=== PATIENT | female | born 1955 | race Caucasian/White ===

== ENCOUNTER 2016-08-07 10:28 | Outpatient (CLI) | payer BC | END 2016-08-07 10:29 | disposition home or self-care (01) | DX: Z71.3 Dietary counseling and surveillance (principal); N18.4 Chronic kidney disease, stage 4 (severe); Z68.1 Body mass index [BMI] 19.9 or less, adult ==

== ENCOUNTER 2016-08-28 10:40 | Outpatient (CLI) | payer BC, OTHER | END 2016-08-28 10:41 | disposition home or self-care (01) | DX: R05 Cough (principal); Z87.01 Personal history of pneumonia (recurrent) ==

== ENCOUNTER 2016-11-15 16:00 | Outpatient (CLI) | payer OTHER ==
[2016-11-15 18:40] LABS: CALCIUM 10.1 mg/dL (8.5-10.3); CREATININE 3.2 mg/dL (0.4-1.0); PHOSPHORUS 3.7 mg/dL (2.5-4.6); POTASSIUM 3.8 mmol/L (3.5-5.0); URIC ACID 8.2 mg/dL (2.6-7.2)
== END 2016-11-15 16:01 | disposition home or self-care (01) ==
LOC: LAB.F 16:00
PROVIDERS: ATTEND Internal Medicine Nephrology
DX: I12.9 Hypertensive chronic kidney disease with stage 1 through stage 4 chronic kidney disease, or unspecified chronic kidney disease (principal); N18.4 Chronic kidney disease, stage 4 (severe)
CPT/HCPCS: 36415; 80069; 84156; 84550

== ENCOUNTER 2017-02-05 10:31 | Outpatient (CLI) | payer BC ==
[2017-02-05 18:42] LABS: HCT - HEMATOCRIT 36.4 % (37.0-47.0); HGB - HEMOGLOBIN 12.2 g/dL (12.0-16.0); MEAN CORPUSCULAR HEMOGLOBIN 33.4 pg (27.0-31.0); MEAN CORPUSCULAR HGB CONC 33.4 g/dL (32.0-36.0); MEAN CORPUSCULAR VOLUME 99.8 fL (81.0-99.0); RED BLOOD COUNT 3.65 10^6/uL (4.20-5.40); RED CELL DISTRIBUTION WIDTH 13.5 % (12.0-15.0); WHITE BLOOD COUNT 7.5 x10^3/uL (4.8-10.8)
[2017-02-05 19:12] LABS: CALCIUM 9.7 mg/dL (8.5-10.3); CREATININE 2.8 mg/dL (0.4-1.0); PHOSPHORUS 3.7 mg/dL (2.5-4.6)
== END 2017-02-05 10:32 | disposition home or self-care (01) ==
LOC: LAB.F 10:31
PROVIDERS: ATTEND Internal Medicine Nephrology
DX: I13.0 Hypertensive heart and chronic kidney disease with heart failure and stage 1 through stage 4 chronic kidney disease, or unspecified chronic kidney disease (principal); I50.20 Unspecified systolic (congestive) heart failure; N18.4 Chronic kidney disease, stage 4 (severe)
CPT/HCPCS: 36415; 80069; 84156

== ENCOUNTER 2017-02-15 12:08 | Outpatient (CLI) | payer BC ==
--- NOTE | 2017-02-16 13:16 | Mammography Report ---
DIGITAL SCREENING MAMMOGRAM: 02/15/2017 CLINICAL INDICATION: A 62-year-old nulliparous patient with family history of breast cancer for scre ening. COMPARISON: 07/2015, 09/2012, 08/2009, 06/2007 TECHNIQUE: Routine CC and MLO projections were obtained of the breasts. FINDINGS: The breasts again demonstrate heterogeneously dense fibroglandular parenchyma bilaterally. Coarse and punctate, typically benign calcifications are present. No suspicious masses, clustered microcalcifications, or regions of architectural distortion are identified. IMPRESSION: BENIGN FINDINGS. RECOMMENDATION: Routine annual screening unless otherwise clinically indicated. BIRADS CATEGORY 2 - BENIGN FINDINGS. STANDARD QUALIFYING STATEMENTS 1. This examination was reviewed with the aid of Computer-Aided Detection (CAD). 2. A negative or benign imaging report should not delay biopsy if clinically suspicious findings are present. Consider surgical consultation if warranted. More than 5% of cancers are not identified by i maging. 3. Dense breasts may obscure an underlying neoplasm. JOB #: [id number] EXT JOB #:[id number]
== END 2017-02-15 12:09 | disposition home or self-care (01) ==
LOC: DI.S 12:08
PROVIDERS: ATTEND Internal Medicine
DX: Z12.31 Encounter for screening mammogram for malignant neoplasm of breast (principal); Z80.3 Family history of malignant neoplasm of breast
CPT/HCPCS: 77067

== ENCOUNTER → 2017-03-26 | Outpatient (CLI) | payer BC, OTHER | LOC: LAB.F 08:00 | PROVIDERS: ATTEND Internal Medicine | DX: I12.9 Hypertensive chronic kidney disease with stage 1 through stage 4 chronic kidney disease, or unspecified chronic kidney disease (principal); N18.4 Chronic kidney disease, stage 4 (severe) ==

== ENCOUNTER → 2017-03-27 | Outpatient (CLI) | payer BC, OTHER | LOC: LAB.R 08:00 | PROVIDERS: ATTEND Internal Medicine | DX: I12.9 Hypertensive chronic kidney disease with stage 1 through stage 4 chronic kidney disease, or unspecified chronic kidney disease (principal); N18.4 Chronic kidney disease, stage 4 (severe) | CPT/HCPCS: 82270 ==

== ENCOUNTER 2017-04-06 08:52 | Outpatient (CLI) | payer BC ==
[2017-04-06 18:38] LABS: BUN - BLOOD UREA NITROGEN 19 mg/dL (6-20); CALCIUM 9.5 mg/dL (8.5-10.3); CARBON DIOXIDE - CO2 25 mmol/L (21-32); CHLORIDE 105 mmol/L (101-111); CHOL/HDL RATIO 3.3 (<4.4); CHOLESTEROL 182 mg/dL; CREATININE 2.5 mg/dL (0.4-1.0); GFR - MDRD 20 (>89); GLUCOSE 93 mg/dL (70-100); HDL CHOLESTEROL 56 mg/dL; LDL/HDL RATIO 1.8 (<4.4); POTASSIUM 4.3 mmol/L (3.5-5.0); SODIUM 138 mmol/L (135-145); TRIGLYCERIDES 115 mg/dL; VLDL CHOLESTEROL 23 mg/dL
[2017-04-06 18:49] LABS: HCT - HEMATOCRIT 36.2 % (37.0-47.0); HGB - HEMOGLOBIN 12.2 g/dL (12.0-16.0); MEAN CORPUSCULAR HEMOGLOBIN 33.1 pg (27.0-31.0); MEAN CORPUSCULAR HGB CONC 33.6 g/dL (32.0-36.0); MEAN CORPUSCULAR VOLUME 98.4 fL (81.0-99.0); RED BLOOD COUNT 3.68 10^6/uL (4.20-5.40); RED CELL DISTRIBUTION WIDTH 13.8 % (12.0-15.0); WHITE BLOOD COUNT 6.8 x10^3/uL (4.8-10.8)
== END 2017-04-06 08:53 | disposition home or self-care (01) ==
LOC: LAB.F 08:52
PROVIDERS: ATTEND Internal Medicine Nephrology
DX: I13.0 Hypertensive heart and chronic kidney disease with heart failure and stage 1 through stage 4 chronic kidney disease, or unspecified chronic kidney disease (principal); I50.20 Unspecified systolic (congestive) heart failure; N18.4 Chronic kidney disease, stage 4 (severe)
CPT/HCPCS: 36415; 80061; 80069; 86803

== ENCOUNTER 2017-04-13 09:52 | Outpatient (CLI) | payer BC, OTHER | END 2017-04-13 09:53 | disposition home or self-care (01) | LOC: NS 09:52 | PROVIDERS: ATTEND Internal Medicine | DX: Z71.3 Dietary counseling and surveillance (principal); N18.5 Chronic kidney disease, stage 5; Z68.1 Body mass index [BMI] 19.9 or less, adult | CPT/HCPCS: 97802 ==

== ENCOUNTER 2017-07-27 10:51 | Outpatient (CLI) | payer OTHER ==
[2017-07-27 18:18] LABS: ALBUMIN 4.2 g/dL (3.2-5.5); CALCIUM 9.3 mg/dL (8.5-10.3); CREATININE 3.2 mg/dL (0.4-1.0); PHOSPHORUS 4.6 mg/dL (2.5-4.6)
== END 2017-07-27 10:52 | disposition home or self-care (01) ==
LOC: LAB.F 10:51
PROVIDERS: ATTEND Internal Medicine Nephrology
DX: I13.0 Hypertensive heart and chronic kidney disease with heart failure and stage 1 through stage 4 chronic kidney disease, or unspecified chronic kidney disease (principal); E79.0 Hyperuricemia without signs of inflammatory arthritis and tophaceous disease; I50.20 Unspecified systolic (congestive) heart failure; N18.4 Chronic kidney disease, stage 4 (severe); F17.200 Nicotine dependence, unspecified, uncomplicated; E61.1 Iron deficiency
CPT/HCPCS: 36415; 80069; 83970; 84156

== ENCOUNTER 2017-08-22 08:24 | Outpatient (CLI) | payer OTHER ==
[2017-08-22 10:45] LABS: ALBUMIN 3.9 g/dL (3.2-5.5); CALCIUM 9.9 mg/dL (8.5-10.3); PHOSPHORUS 3.8 mg/dL (2.5-4.6)
[2017-08-22 10:53] LABS: HGB - HEMOGLOBIN 11.7 g/dL (12.0-16.0); MEAN CORPUSCULAR HEMOGLOBIN 32.4 pg (27.0-31.0); MEAN CORPUSCULAR HGB CONC 33.7 g/dL (32.0-36.0); MEAN CORPUSCULAR VOLUME 96.3 fL (81.0-99.0); MEAN PLATELET VOLUME 9.5 fL (7.9-10.8); RED BLOOD COUNT 3.6 10^6/uL (4.20-5.40); RED CELL DISTRIBUTION WIDTH 12.8 % (12.0-15.0); WHITE BLOOD COUNT 10.3 x10^3/uL (4.8-10.8)
== END 2017-08-22 08:25 | disposition home or self-care (01) ==
LOC: LAB.F 08:24
PROVIDERS: ATTEND Internal Medicine Nephrology
DX: I12.9 Hypertensive chronic kidney disease with stage 1 through stage 4 chronic kidney disease, or unspecified chronic kidney disease (principal); N18.4 Chronic kidney disease, stage 4 (severe)
CPT/HCPCS: 36415; 80069; 83970; 84156

== ENCOUNTER 2017-12-06 08:53 | Outpatient (CLI) | payer OTHER ==
[2017-12-06 10:50] LABS: HGB - HEMOGLOBIN 11.7 g/dL (12.0-16.0); MEAN CORPUSCULAR HEMOGLOBIN 32.6 pg (27.0-31.0); MEAN CORPUSCULAR HGB CONC 33.1 g/dL (32.0-36.0); MEAN CORPUSCULAR VOLUME 98.6 fL (81.0-99.0); MEAN PLATELET VOLUME 9.4 fL (7.9-10.8); RED BLOOD COUNT 3.59 10^6/uL (4.20-5.40); RED CELL DISTRIBUTION WIDTH 14.6 % (12.0-15.0); WHITE BLOOD COUNT 10.6 x10^3/uL (4.8-10.8)
[2017-12-06 11:18] LABS: ALBUMIN 3.9 g/dL (3.2-5.5); CALCIUM 9.5 mg/dL (8.5-10.3); CREATININE 2.3 mg/dL (0.4-1.0); PHOSPHORUS 3.6 mg/dL (2.5-4.6)
== END 2017-12-06 08:54 | disposition home or self-care (01) ==
LOC: LAB.F 08:53
PROVIDERS: ATTEND Internal Medicine
DX: N18.4 Chronic kidney disease, stage 4 (severe) (principal); I12.9 Hypertensive chronic kidney disease with stage 1 through stage 4 chronic kidney disease, or unspecified chronic kidney disease; F17.200 Nicotine dependence, unspecified, uncomplicated
CPT/HCPCS: 36415; 80069; 83970; 84156; 85027

== ENCOUNTER 2018-04-05 09:21 | Outpatient (CLI) | payer OTHER ==
[2018-04-05 09:29] LABS: MUDS CUTOFF CONCENTRATIONS CUTOFF CONC BELOW:
[2018-04-05 18:18] LABS: AMPHETAMINE SCREEN,URINE NEGATIVE (NEGATIVE); BENZODIAZEPINES SCREEN, URINE POSITIVE (NEGATIVE); COCAINE SCREEN URINE NEGATIVE (NEGATIVE); METHADONE SCREEN, URINE NEGATIVE (NEGATIVE); METHAMPHETAMINES SCREEN, URINE NEGATIVE (NEGATIVE); OPIATE SCREEN, URINE NEGATIVE (NEGATIVE); TRICYCLIC ANTIDEPRESSANT,URINE NEGATIVE (NEGATIVE)
[2018-04-05 18:19] LABS: OXYCODONE SCREEN, URINE POSITIVE (NEGATIVE); PROPOXYPHENE SCREEN, URINE NEGATIVE (NEGATIVE)
[2018-04-05 18:21] LABS: CALCIUM 9.6 mg/dL (8.5-10.3); CREATININE 2.7 mg/dL (0.4-1.0); PHOSPHORUS 3.8 mg/dL (2.5-4.6)
[2018-04-05 18:25] LABS: HGB - HEMOGLOBIN 11.5 g/dL (12.0-16.0); MEAN CORPUSCULAR HEMOGLOBIN 32.8 pg (27.0-31.0); MEAN CORPUSCULAR HGB CONC 33.2 g/dL (32.0-36.0); MEAN CORPUSCULAR VOLUME 98.6 fL (81.0-99.0); MEAN PLATELET VOLUME 9.3 fL (7.9-10.8); RED BLOOD COUNT 3.51 10^6/uL (4.20-5.40); RED CELL DISTRIBUTION WIDTH 13.4 % (12.0-15.0); WHITE BLOOD COUNT 7.3 x10^3/uL (4.8-10.8)
== END 2018-04-05 09:22 | disposition home or self-care (01) ==
LOC: LAB.F 09:21
PROVIDERS: ATTEND Internal Medicine
DX: Z79.891 Long term (current) use of opiate analgesic (principal)
CPT/HCPCS: 36415; 80069; 80306; 83970; 85027

== ENCOUNTER 2018-07-24 11:50 | Outpatient (CLI) | payer OTHER ==
[2018-07-24 17:42] LABS: HGB - HEMOGLOBIN 10.7 g/dL (12.0-16.0); MEAN CORPUSCULAR HEMOGLOBIN 32.6 pg (27.0-31.0); MEAN CORPUSCULAR HGB CONC 33.2 g/dL (32.0-36.0); RED BLOOD COUNT 3.28 10^6/uL (4.20-5.40); RED CELL DISTRIBUTION WIDTH 13.8 % (12.0-15.0); WHITE BLOOD COUNT 9.4 x10^3/uL (4.8-10.8)
[2018-07-24 18:23] LABS: CALCIUM 9.4 mg/dL (8.5-10.3); CREATININE 2.9 mg/dL (0.4-1.0); PHOSPHORUS 4.2 mg/dL (2.5-4.6)
[2018-07-24 19:20] LABS: CREATININE,URINE 54.1 mg/dL; PROTEIN/CREATININE RATIO,URINE 4.4 (<=0.2)
== END 2018-07-24 23:59 | disposition home or self-care (01) ==
LOC: LAB.F 11:50
PROVIDERS: ATTEND Internal Medicine Nephrology
DX: N18.4 Chronic kidney disease, stage 4 (severe) (principal)
CPT/HCPCS: 36415; 80069; 82570; 83970; 84156; 85027

== ENCOUNTER 2018-09-06 07:58 | Outpatient (CLI) | payer OTHER ==
[2018-09-06 11:10] LABS: HGB - HEMOGLOBIN 10.4 g/dL (12.0-16.0); MEAN CORPUSCULAR HEMOGLOBIN 32.4 pg (27.0-31.0); MEAN CORPUSCULAR HGB CONC 33.5 g/dL (32.0-36.0); MEAN CORPUSCULAR VOLUME 96.7 fL (81.0-99.0); MEAN PLATELET VOLUME 9.1 fL (7.9-10.8); RED BLOOD COUNT 3.21 10^6/uL (4.20-5.40); RED CELL DISTRIBUTION WIDTH 13.3 % (12.0-15.0); WHITE BLOOD COUNT 7.8 x10^3/uL (4.8-10.8)
[2018-09-06 11:24] LABS: ALBUMIN 3.7 g/dL (3.2-5.5); CREATININE 3.3 mg/dL (0.4-1.0); PHOSPHORUS 4.5 mg/dL (2.5-4.6)
[2018-09-06 11:37] LABS: FERRITIN 326.7 ng/mL (11.0-306.8)
[2018-09-06 13:23] LABS: CREATININE,URINE 55.8 mg/dL; PROTEIN/CREATININE RATIO,URINE 2.4 (<=0.2)
[2018-09-06 14:19] LABS: CALCIUM 9.4 mg/dL (8.5-10.3)
== END 2018-09-06 07:59 | disposition home or self-care (01) ==
LOC: LAB.F 07:58
PROVIDERS: ATTEND Internal Medicine Nephrology
DX: N18.4 Chronic kidney disease, stage 4 (severe) (principal)
CPT/HCPCS: 36415; 80069; 82570; 82728; 83540; 83970; 84156; 84466; 85027

== ENCOUNTER 2018-12-06 09:12 | Outpatient (CLI) | payer OTHER ==
[2018-12-06 17:40] LABS: HGB - HEMOGLOBIN 10.5 g/dL (12.0-16.0); MEAN PLATELET VOLUME 9.1 fL (7.9-10.8); RED BLOOD COUNT 3.28 10^6/uL (4.20-5.40); RED CELL DISTRIBUTION WIDTH 13.3 % (12.0-15.0); WHITE BLOOD COUNT 8.9 x10^3/uL (4.8-10.8)
[2018-12-06 18:14] LABS: ALBUMIN 4.3 g/dL (3.2-5.5); CALCIUM 9.6 mg/dL (8.5-10.3); CREATININE 4.2 mg/dL (0.4-1.0); PHOSPHORUS 4.4 mg/dL (2.5-4.6)
[2018-12-06 18:15] LABS: FERRITIN 302.8 ng/mL (11.0-306.8)
[2018-12-06 19:19] LABS: CREATININE,URINE 68.3 mg/dL; PROTEIN/CREATININE RATIO,URINE 2.4 (<=0.2)
== END 2018-12-06 09:13 | disposition home or self-care (01) ==
LOC: LAB.F 09:12
PROVIDERS: ATTEND Internal Medicine Nephrology
DX: N18.4 Chronic kidney disease, stage 4 (severe) (principal)
CPT/HCPCS: 36415; 80069; 82570; 82728; 83540; 83970; 84156; 84466; 85027

== ENCOUNTER 2019-02-10 10:56 | Outpatient (CLI) | payer OTHER ==
[2019-02-10 17:23] LABS: MEAN CORPUSCULAR HGB CONC 30.7 g/dL (32.0-36.0); MEAN PLATELET VOLUME 11.3 fL (7.9-10.8); RED BLOOD COUNT 2.9 10^6/uL (4.20-5.40); WHITE BLOOD COUNT 8.3 x10^3/uL (4.8-10.8)
[2019-02-10 17:46] LABS: ALBUMIN 4.1 g/dL (3.2-5.5); CALCIUM 9.5 mg/dL (8.5-10.3); PHOSPHORUS 4.1 mg/dL (2.5-4.6)
== END 2019-02-10 10:57 | disposition home or self-care (01) ==
LOC: LAB.S 10:56
PROVIDERS: ATTEND Internal Medicine Nephrology
DX: N18.5 Chronic kidney disease, stage 5 (principal)
CPT/HCPCS: 36415; 80069; 85027

== ENCOUNTER 2019-04-28 09:21 | Outpatient (CLI) | payer OTHER ==
[2019-04-28 18:09] LABS: HGB - HEMOGLOBIN 9.5 g/dL (12.0-16.0); MEAN CORPUSCULAR HEMOGLOBIN 30.4 pg (27.0-31.0); MEAN CORPUSCULAR VOLUME 101.3 fL (81.0-99.0); MEAN PLATELET VOLUME 10.8 fL (7.9-10.8); RED BLOOD COUNT 3.13 10^6/uL (4.20-5.40); RED CELL DISTRIBUTION WIDTH 13.2 % (12.0-15.0); WHITE BLOOD COUNT 9.6 x10^3/uL (4.8-10.8)
[2019-04-28 18:25] LABS: ALBUMIN 4.1 g/dL (3.2-5.5); CALCIUM 9.3 mg/dL (8.5-10.3); CREATININE 4.2 mg/dL (0.4-1.0); PHOSPHORUS 4.6 mg/dL (2.5-4.6)
[2019-04-28 19:19] LABS: CREATININE,URINE 68.8 mg/dL; PROTEIN/CREATININE RATIO,URINE 2.6 (<=0.2)
== END 2019-04-28 09:22 | disposition home or self-care (01) ==
LOC: LAB.S 09:21
PROVIDERS: ATTEND Internal Medicine Nephrology
DX: N18.5 Chronic kidney disease, stage 5 (principal)
CPT/HCPCS: 36415; 80069; 82570; 83970; 84156; 85027

== ENCOUNTER 2019-06-23 13:07 | Outpatient (CLI) | payer OTHER ==
[2019-06-23 18:08] LABS: HGB - HEMOGLOBIN 9.9 g/dL (12.0-16.0); MEAN CORPUSCULAR HEMOGLOBIN 31.1 pg (27.0-31.0); MEAN CORPUSCULAR HGB CONC 31.2 g/dL (32.0-36.0); MEAN CORPUSCULAR VOLUME 99.7 fL (81.0-99.0); MEAN PLATELET VOLUME 10.9 fL (7.9-10.8); RED BLOOD COUNT 3.18 10^6/uL (4.20-5.40); RED CELL DISTRIBUTION WIDTH 13.2 % (12.0-15.0); WHITE BLOOD COUNT 8.7 x10^3/uL (4.8-10.8)
[2019-06-23 18:10] LABS: CALCIUM 9.7 mg/dL (8.5-10.3); CREATININE 4.3 mg/dL (0.4-1.0); PHOSPHORUS 4.2 mg/dL (2.5-4.6)
== END 2019-06-23 13:08 | disposition home or self-care (01) ==
LOC: LAB.S 13:07
PROVIDERS: ATTEND Internal Medicine Nephrology
DX: N18.5 Chronic kidney disease, stage 5 (principal)
CPT/HCPCS: 36415; 80069; 83970; 84156; 85027

== ENCOUNTER 2019-08-18 10:31 | Outpatient (CLI) | payer OTHER ==
[2019-08-18 17:56] LABS: HGB - HEMOGLOBIN 9.5 g/dL (12.0-16.0); MEAN CORPUSCULAR HEMOGLOBIN 30.2 pg (27.0-31.0); MEAN CORPUSCULAR HGB CONC 30.1 g/dL (32.0-36.0); MEAN CORPUSCULAR VOLUME 100.3 fL (81.0-99.0); RED BLOOD COUNT 3.15 10^6/uL (4.20-5.40); RED CELL DISTRIBUTION WIDTH 12.6 % (12.0-15.0); WHITE BLOOD COUNT 10.6 x10^3/uL (4.8-10.8)
[2019-08-18 18:19] LABS: ALBUMIN 3.9 g/dL (3.2-5.5); CALCIUM 9.4 mg/dL (8.5-10.3); CREATININE 5.9 mg/dL (0.4-1.0); PHOSPHORUS 5.6 mg/dL (2.5-4.6)
[2019-08-18 18:59] LABS: PROTEIN/CREATININE RATIO,URINE 2.2 (<=0.2)
== END 2019-08-18 10:32 | disposition home or self-care (01) ==
LOC: LAB.S 10:31
PROVIDERS: ATTEND Internal Medicine Nephrology
DX: N18.5 Chronic kidney disease, stage 5 (principal)
CPT/HCPCS: 36415; 80069; 82570; 83970; 84156; 85027

== ENCOUNTER 2019-09-01 09:29 | Outpatient (CLI) | payer OTHER ==
[2019-09-01 10:08] LABS: HGB - HEMOGLOBIN 9.1 g/dL (12.0-16.0); MEAN CORPUSCULAR HEMOGLOBIN 32.7 pg (27.0-31.0); MEAN CORPUSCULAR HGB CONC 32.9 g/dL (32.0-36.0); MEAN CORPUSCULAR VOLUME 99.6 fL (81.0-99.0); MEAN PLATELET VOLUME 9.9 fL (7.9-10.8); RED BLOOD COUNT 2.78 10^6/uL (4.20-5.40); RED CELL DISTRIBUTION WIDTH 12.5 % (12.0-15.0); WHITE BLOOD COUNT 9.3 x10^3/uL (4.8-10.8)
[2019-09-01 10:28] LABS: ALBUMIN 4.1 g/dL (3.2-5.5); CREATININE 5.8 mg/dL (0.4-1.0); PHOSPHORUS 4.6 mg/dL (2.5-4.6)
[2019-09-01 11:27] LABS: FOLATE > 49.60 ng/mL (5.90 - >24.8)
--- NOTE | 2019-09-01 15:21 | XRAY Report ---
Reason: STAGE 5 CHRONIC KIDNEY DISEASE Procedure Date: 09/01/2019 Accession Number: [id number] / [id number] Procedure: XR - Chest 2 View X-Ray CPT Code: 20423 Final Report FULL RESULT: EXAM: CHEST RADIOGRAPHY EXAM DATE: 09/01/2019 10:16 AM. CLINICAL HISTORY: STAGE 5 CHRONIC KIDNEY DISEASE. COMPARISON: CHEST 2 VIEW PA/LAT 08/28/2016 10:49 AM. TECHNIQUE: 2 views. FINDINGS: Lungs/Pleura: No consolidation, airspace disease, pleural effusion or pneumothorax. Hyperinflated lungs with flattened diaphragm. Mediastinum: Heart and mediastinal contours are unremarkable. Other: Mild to moderate levoscoliosis at the thoracolumbar spine. IMPRESSION: No acute cardiopulmonary disease. COPD could be present. See above. RADIA
[2019-09-02 12:45] LABS: HEPATITIS B SURFACE ANTIGEN NON-REACTIVE (NON-REACTIVE)
== END 2019-09-01 09:30 | disposition home or self-care (01) ==
LOC: LAB 09:29
PROVIDERS: ATTEND Internal Medicine Nephrology
DX: N18.6 End stage renal disease (principal); D63.1 Anemia in chronic kidney disease
CPT/HCPCS: 36415; 71046; 80069; 82607; 82728; 82746; 83540; 83970; 84466; 85027; 86317; 86704; 87340

== ENCOUNTER 2019-12-18 08:58 | Outpatient (CLI) | payer OTHER ==
[2019-12-18 16:02] LABS: HGB - HEMOGLOBIN 8.2 g/dL (12.0-16.0); MEAN CORPUSCULAR HEMOGLOBIN 30.5 pg (27.0-31.0); MEAN CORPUSCULAR VOLUME 101.5 fL (81.0-99.0); MEAN PLATELET VOLUME 11.3 fL (7.9-10.8); RED BLOOD COUNT 2.69 10^6/uL (4.20-5.40); RED CELL DISTRIBUTION WIDTH 12.7 % (12.0-15.0); WHITE BLOOD COUNT 6.6 x10^3/uL (4.8-10.8)
[2019-12-18 16:29] LABS: ALBUMIN 4.1 g/dL (3.2-5.5); CALCIUM 9.3 mg/dL (8.5-10.3); CREATININE 6.3 mg/dL (0.4-1.0); PHOSPHORUS 5.4 mg/dL (2.5-4.6)
== END 2019-12-18 08:59 | disposition home or self-care (01) ==
LOC: LAB.S 08:58
PROVIDERS: ATTEND Internal Medicine Nephrology
DX: N18.5 Chronic kidney disease, stage 5 (principal)
CPT/HCPCS: 36415; 80069; 85025; 85027

== ENCOUNTER 2020-01-16 12:28 | Outpatient (CLI) | payer OTHER ==
[2020-01-16 15:30] LABS: HGB - HEMOGLOBIN 8.2 g/dL (12.0-16.0); MEAN CORPUSCULAR HEMOGLOBIN 31.3 pg (27.0-31.0); MEAN CORPUSCULAR HGB CONC 31.1 g/dL (32.0-36.0); MEAN CORPUSCULAR VOLUME 100.8 fL (81.0-99.0); MEAN PLATELET VOLUME 11.1 fL (7.9-10.8); RED BLOOD COUNT 2.62 10^6/uL (4.20-5.40); RED CELL DISTRIBUTION WIDTH 12.8 % (12.0-15.0); WHITE BLOOD COUNT 8.8 x10^3/uL (4.8-10.8)
[2020-01-16 15:46] LABS: ALBUMIN 4.2 g/dL (3.2-5.5); CALCIUM 9.1 mg/dL (8.5-10.3); CREATININE 6.4 mg/dL (0.4-1.0); PHOSPHORUS 6.4 mg/dL (2.5-4.6)
[2020-01-17 14:10] LABS: HEPATITIS B SURFACE ANTIGEN NON-REACTIVE (NON-REACTIVE)
== END 2020-01-16 12:29 | disposition home or self-care (01) ==
LOC: LAB.S 12:28
PROVIDERS: ATTEND Internal Medicine Nephrology
DX: N18.5 Chronic kidney disease, stage 5 (principal); D63.1 Anemia in chronic kidney disease
CPT/HCPCS: 36415; 80069; 83970; 85027; 87340

== ENCOUNTER 2021-06-28 11:16 | Outpatient (CLI) | payer MEDICARE ==
--- NOTE | 2021-06-29 13:56 | Mammography Report ---
BILATERAL DIGITAL SCREENING MAMMOGRAM 3D/2D WITH EXAGGERATED CC: 06/28/2021 Comparison is made to exams dated: 02/15/2017 mammogram, 08/10/2015 mammogram, and 10/02/2012 mammogram - [facility]. The tissue of both breasts is predominantly fatty. There are stable benign diffuse calcifications in both breasts. No significant masses, calcifications, or other findings are seen in either breast. There has been no significant interval change. IMPRESSION: BENIGN There is no mammographic evidence of malignancy. A 1 year screening mammogram is recommended. This exam was interpreted at Station ID: [id number]. NOTE: For mammograms, a report in lay terms will be sent to the patient. Approximately 15% of breast malignancies will not be visualized mammographically. In the management of a palpable breast mass, a negative mammogram must not discourage biopsy of a clinically suspicious lesion. Electronically Signed By: Norm Turner acr/penrad:06/28/2021 15:19:40 ACR BI-RADS Category 2: Benign Finding(s) 3342F PARENCHYMAL PATTERN: (F) - The breast(s) demonstrate(s) diffuse fatty replacement. BI-RADS CATEGORY: (2) - 2 RECOMMENDATION: (ANNUAL) - Recommend routine annual screening mammography. [id number] 1 year screening LATERALITY: (B)
== END 2021-06-28 11:17 | disposition home or self-care (01) ==
LOC: DI.S 11:16
PROVIDERS: ATTEND Internal Medicine
DX: Z12.31 Encounter for screening mammogram for malignant neoplasm of breast (principal)

== ENCOUNTER 2021-06-29 12:42 | Outpatient (CLI) | payer MEDICARE ==
--- NOTE | 2021-06-29 14:18 | DEXA Report ---
PROCEDURE: Dexa Spine and/or Hip INDICATIONS: OSTEOPOROSIS TECHNIQUE: Dual energy x-ray absorptiometry (DXA) was performed on a [employer] System. Regions measur ed are the AP Spine, femoral neck, and if needed forearm. COMPARISON: None. FINDINGS: Lumbar Spine: Bone Mineral Density 1.319 g/cm/cm,T score 1.2, normal bone density Right Hip: Bone Mineral Density 0.602 g/cm/cm,T score -3.2, osteoporosis Right Femoral Neck: Bone Mineral Density 0.660 g/cm/cm, T score -2.7, osteoporosis (T score greater or equal to -1.0: NORMAL) (T score from -1.1 to -2.4: OSTEOPENIA) (T score less than or equal to -2.5 to: OSTEOPOROSIS) Impression: OSTEOPOROSIS. Patient is at high risk for fracture. Patients with diagnosis of osteoporosis or osteopenia should have regular bone mineral density assess ment. For those eligible for Medicare, routine testing is allowed once every 2 years. Testing frequ ency can be increased for patients who have rapidly progressing disease or for those who are receivin g medical therapy to restore bone mass. Reviewed by: Chalo Perez MD on 06/29/2021 2:17 PM PST Approved by: Chalo Perez MD on 06/29/2021 2:17 PM PST Station ID: [id number]
== END 2021-06-29 12:43 | disposition home or self-care (01) ==
LOC: DI 12:42
PROVIDERS: ATTEND Internal Medicine
DX: N95.8 Other specified menopausal and perimenopausal disorders (principal); M81.0 Age-related osteoporosis without current pathological fracture

== ENCOUNTER 2021-08-04 10:12 | Outpatient (CLI) | payer MEDICARE | END 2021-08-04 10:13 | disposition home or self-care (01) | LOC: LAB.S 10:12 | PROVIDERS: ATTEND Internal Medicine Nephrology | DX: N18.6 End stage renal disease (principal); Z99.2 Dependence on renal dialysis | CPT/HCPCS: 80323; 81599 ==

== ENCOUNTER 2021-09-20 13:58 | Outpatient (CLI) | payer MEDICARE | END 2021-09-20 13:59 | disposition short-term general hospital (02) | LOC: EMS 13:58 | DX: R41.0 Disorientation, unspecified (principal); R25.3 Fasciculation; R42 Dizziness and giddiness; R53.1 Weakness; R29.6 Repeated falls | CPT/HCPCS: A0425; A0429 ==

== ENCOUNTER 2021-11-15 08:51 | Outpatient (CLI) | payer MEDICARE, OTHER ==
--- NOTE | 2021-11-15 11:48 | CT Report ---
PROCEDURE: Abdomen/Pelvis WO INDICATIONS: END STAGE RENAL FAILURE TECHNIQUE: Noncontrast 5 mm thick sections acquired from the diaphragms to the symphysis. 5 mm coronal and sagi ttal reformats were then performed. For radiation dose reduction, the following was used: automated exposure control, adjustment of mA and/or kV according to patient size. COMPARISON: None. FINDINGS: Image quality: Diagnostic. Study slightly degraded by motion artifact. ABDOMEN: Lung bases: Trace bilateral pleural effusions with associated compressive atelectasis. Heart size is normal. Solid organs: Liver and spleen are normal in size. Gallbladder is partially decompressed with mild circumferential wall thickening which likely represents incomplete distention with small amount of flores rrounding ascites. Pancreas is normal in contours. No peripancreatic inflammation. No adrenal nodul es. Both kidneys are slightly atrophic. The left kidney is smaller than the right. Numerous bilateral renal hypodensities are noted measuring up to 3.2 cm on the right and 2.5 cm the left. Many of these measure near fluid attenuation. These are incompletely evaluated secondary to lack of intravenous co ntrast. However, these are likely renal cysts with some representing hyperdense cysts. Peritoneum and bowel: Unenhanced bowel loops demonstrate normal wall thickness and caliber. No free air. Small mary unt of free fluid in the abdomen and pelvis. Nodes and vessels: No retroperitoneal or mesenteric adenopathy by size criteria. Aorta and inferior vena cava are normal in caliber. Scattered atherosclerotic calcifications of the abdominal aorta. Miscellaneous: No ventral hernias. Peritoneal dialysis catheter is visualized entering the abdomen in the right midabdomen with distal tip coiled within the right lower pelvis. Small amount of fluid s urrounds the distal segments. No evidence to suggest loculation or organized fluid collection. PELVIS: Genitourinary: Bladder wall thickness is normal for degree of distention. Miscellaneous: No inguinal hernias or adenopathy. Bones: No suspicious bony lesions. No acute vertebral body compression fractures. Multilevel spondy losis of the imaged spine. Moderate degenerative changes noted in the right hip. Status post left tot al hip arthroplasty. Beam hardening artifact limits evaluation of the lower pelvic structures. Healed fracture deformities of the right inferior pubic ramus. Diffuse osteopenia. IMPRESSION: 1. CT abdomen and pelvis without acute abnormalities. Study is limited due to lack of intravenous con trast as well as mild image degradation secondary to patient motion artifact. 2. Multiple bilateral renal hypodensities which are incompletely characterized. These are favored to represent bilateral renal cysts. 3. Atherosclerotic vascular disease. No evidence for aneurysmal dilatation of the abdominal aorta. 4. Trace bilateral pleural effusions with bibasilar atelectasis. 5. Diffuse osteopenia. 6. Multilevel spondylosis. No acute compression fractures visualized. 7. Healed right inferior pubic ramus fracture deformity. 8. Peritoneal dialysis catheter in place with the distal tip coiled in the lower right pelvis. Reviewed by: Chalo Perez MD on 11/15/2021 11:46 AM PDT Approved by: Chalo Perez MD on 11/15/2021 11:46 AM PDT Station ID: [id number]
== END 2021-11-15 08:52 | disposition home or self-care (01) ==
LOC: DI 08:51
PROVIDERS: ATTEND Internal Medicine Nephrology
DX: N18.6 End stage renal disease (principal); Z99.2 Dependence on renal dialysis; I70.0 Atherosclerosis of aorta; M85.80 Other specified disorders of bone density and structure, unspecified site; M95.5 Acquired deformity of pelvis

== ENCOUNTER 2021-11-18 14:21 | Outpatient (CLI) | payer MEDICARE ==
--- NOTE | 2021-11-18 18:38 | Ultrasound Report ---
PROCEDURE: Abdomen Complete INDICATIONS: END STAGE RENAL FAILURE ON DIALYSIS TECHNIQUE: Real-time scanning was performed of the abdominal and retroperitoneal organs, with image documentatio n. COMPARISON: None. FINDINGS: Examination is limited. Liver: Liver is normal in size and demonstrates a coarsened echotexture. Gallbladder: Wall is mildly thickened at 3 mm. No calculi nor sludge. Biliary ducts: Intrahepatic bile ducts are non-dilated. Extrahepatic bile duct caliber measures 14 mm. Normal is 6-7 mm or less in diameter, or 10 mm or less post-cholecystectomy. Pancreas: Pancreatic duct is prominent. Pancreatic recommend not well seen. Spleen: Spleen is normal in size and homogeneous in echotexture. Kidneys: Multiple bilateral renal cysts. Right kidney measures 11 cm, left kidney measures 9 cm. Righ t renal cortical thickness is 16 mm. Left renal cortical thickness is 10 mm. No nephrolithiasis nor d efinite hydronephrosis. Aorta: Visualized aorta is normal in caliber at less than 3 cm. Iliacs: Proximal common iliac arteries are normal in caliber at less than 2.5 cm. IVC: Intrahepatic inferior vena cava is patent. Miscellaneous: Possible trace amount of perihepatic ascites. IMPRESSION: 1. Dilated common bile duct. This could represent a distal common bile duct calculus or obstructing m ass. This could be further assessed with MRCP, if clinically indicated. 2. Bilateral renal cysts. No hydronephrosis. 3. Coarsened hepatic echotexture, possibly indicating cirrhosis. 4. Possible small amount of ascites. Reviewed by: Pedro Pablo Valdovinos MD on 11/18/2021 6:36 PM PDT Approved by: Pedro Pablo Valdovinos MD on 11/18/2021 6:36 PM PDT Station ID: [id number]
--- NOTE | 2021-11-18 18:40 | Ultrasound Report ---
PROCEDURE: Duplex Lwr Ext Arterial Bilat INDICATIONS: END STAGE RENAL FAILURE TECHNIQUE: Color and pulse Doppler interrogation was performed of both lower extremity arterial systems, with im age documentation. COMPARISON: None FINDINGS: Right lower extremity: Common femoral artery: 103 cm/sec, with triphasic flow. Deep femoral artery: 105 cm/sec, with triphasic flow. Proximal superficial femoral artery: 149 cm/sec, with triphasic flow. Mid superficial femoral artery: 133 cm/sec, with triphasic flow. Distal superficial femoral artery: 120 cm/sec, with triphasic flow. Popliteal artery: 113 cm/sec, with triphasic flow. Posterior tibial artery: 112 cm/sec, with triphasic flow. Anterior tibial artery/dorsalis pedis: 137 cm/sec, with triphasic flow. Olivas-scale imaging description: Mild plaque Left lower extremity: Common femoral artery: 150 cm/sec, with triphasic flow. Deep femoral artery: 63 cm/sec, with triphasic flow. Proximal superficial femoral artery: 112 cm/sec, with triphasic flow. Mid superficial femoral artery: 102 cm/sec, with triphasic flow. Distal superficial femoral artery: 93 cm/sec, with triphasic flow. Popliteal artery: 94 cm/sec, with triphasic flow. Posterior tibial artery: 91 cm/sec, with triphasic flow. Anterior tibial artery/dorsalis pedis: 99 cm/sec, with triphasic flow. Olivas-scale imaging description: Mild plaque. IMPRESSION: No evidence of arterial insufficiency to the bilateral lower extremities. Reviewed by: Pedro Pablo Valdovinos MD on 11/18/2021 6:39 PM PDT Approved by: Pedro Pablo Valdovinos MD on 11/18/2021 6:39 PM PDT Station ID: [id number]
--- NOTE | 2021-11-18 18:41 | Ultrasound Report ---
PROCEDURE: Carotid Doppler Complete INDICATIONS: END STAGE RENAL FAILURE TECHNIQUE: Color and pulse Doppler interrogation was performed of both carotid systems, with image documentation and velocity measurements. COMPARISON: None. FINDINGS: Right side: Brachial blood pressure: 161/63 mm Hg. Common carotid artery peak systolic velocity: 47 cm/sec. Internal carotid artery peak systolic velocity: 77 cm/sec. Internal carotid artery end diastolic velocity: 25 cm/sec. External carotid artery peak systolic velocity: 95 cm/sec. ICA/CCA peak systolic ratio: 1.6 . Olivas scale imaging description: Severe calcific plaque at the bifurcation Percent internal carotid artery stenosis: Less than 50% . Vertebral artery: Flow direction is antegrade. Left side: Brachial blood pressure: 160/67 mm Hg. Common carotid artery peak systolic velocity: 51 cm/sec. Internal carotid artery peak systolic velocity: 65 cm/sec. Internal carotid artery end diastolic velocity: 21 cm/sec. External carotid artery peak systolic velocity: 100 cm/sec. ICA/CCA peak systolic ratio: 1.3 . Olivas scale imaging description: Severe calcific plaque at the bifurcation Percent internal carotid artery stenosis: Less than 50% . Vertebral artery: Flow direction is antegrade. IMPRESSION: 1. Less than 50% bilateral internal carotid artery stenosis. 2. Antegrade vertebral artery flow bilaterally. The estimate of stenosis included in the report of the imaging study was calculated using the NASCET method Reviewed by: Pedro Pablo Valdovinos MD on 11/18/2021 6:40 PM PDT Approved by: Pedro Pablo Valdovinos MD on 11/18/2021 6:40 PM PDT Station ID: [id number]
== END 2021-11-18 14:22 | disposition home or self-care (01) ==
LOC: DI 14:21
PROVIDERS: ATTEND Internal Medicine Nephrology
DX: N18.6 End stage renal disease (principal); Z99.2 Dependence on renal dialysis; K83.9 Disease of biliary tract, unspecified; N28.1 Cyst of kidney, acquired; I65.23 Occlusion and stenosis of bilateral carotid arteries
CPT/HCPCS: 93880; 93925

== ENCOUNTER 2022-04-18 15:25 | Outpatient (CLI) | payer MEDICARE, MEDICAID | END 2022-04-18 23:59 | disposition critical access hospital (66) | LOC: EMS 15:25 | DX: R41.0 Disorientation, unspecified (principal); R42 Dizziness and giddiness | CPT/HCPCS: A0425; A0429 ==

== ENCOUNTER 2022-04-18 15:48 | Emergency (ER) | payer MEDICARE, MEDICAID ==
--- NOTE | 2022-04-18 15:57 | ED Physician Documentation ---
PD HPI FEVER - Stated complaint Stated Complaint: CONFUSION - History obtained from History obtained from: Patient, EMS - Additional information Additional information: 67-year-old woman with end-stage renal disease on dialysis, Sunday, , Sunday. She also has COPD, type 2 diabetes. She presents by ambulance from dialysis which she completed today because she was noted to be shaky and agitated and altered during dialysis. She was noted to have a temperature of 100.1. The patient recognizes that she is confused but has no other specific complaints. Review of Systems Unable to obtain: Confused PD PAST MEDICAL HISTORY - Past Medical History : Renal insuffiency, Other (ESRD-dialysis dependent) - Past Surgical History Past Surgical History: Yes Ortho: Spine surgery - Present Medications Home Medications: Ambulatory Orders Medication Instructions Recorded Confirmed Acetaminophen [Acetaminophen Extra 1 tab PO Q6HR PRN 01/25/22 04/18/22 Strength] Folic Acid/Vit B Complex and C 1 tab PO DAILY 01/25/22 04/18/22 [Nephro-Hanna Tablet] Amlodipine Besylate [Norvasc] 10 mg PO DAILY 04/18/22 04/18/22 Lanthanum Carbonate [Fosrenol] 1,000 mg PO BID 04/18/22 04/18/22 Oxycodone HCl 15 mg PO ONCE 04/18/22 04/18/22 - Allergies Allergies/Adverse Reactions: Allergies Allergy/AdvReac Type Severity Reaction Status Date / Time morphine AdvReac Emesis Verified 04/18/22 15:58 - Social History Does the pt smoke?: Yes Smoking Status: Current every day smoker Does the pt drink ETOH?: Yes Does the pt have substance abuse?: No PD ED PE NORMAL - Vitals Vital signs reviewed: Yes - General General: Other (She is alert alert and oriented to person and place, when I ask her the date she says it is the but cannot say what month or year it is. 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 She is then.) - HEENT HEENT: PERRL, EOMI - Neck Neck: Supple, no meningeal sign, No bony TTP - Cardiac Cardiac: Other (Mild resting tachycardia, regular without murmur) - Respiratory Respiratory: Other (Mild expiratory wheezes and rhonchi throughout consistent with known COPD, nonlabored) - Abdomen Abdomen: Normal bowel sounds, Soft, Non tender - Back Back: No CVA TTP, No spinal TTP - Derm Derm: Normal color, Warm and dry, Other (Dialysis catheter in the right upper chest wall, tunneled without signs of infection or tenderness.) - Neuro Eye Opening: Spontaneous Motor: Obeys Commands Verbal: Confused GCS Score: 14 Results - Vitals Vitals: Vital Signs - 24 hr 04/18/22 04/18/22 04/18/22 15:58 16:05 16:51 Temperature 37.2 C Heart Rate 107 H 97 89 Respiratory 18 18 19 Rate Blood Pressure 150/87 H 147/78 H 147/83 H O2 Saturation 87 L 92 93 If not protocol 2 : Oxygen Flow, liters/minute 04/18/22 04/18/22 04/18/22 17:23 17:38 18:39 Temperature Heart Rate 91 92 102 H Respiratory 16 21 18 Rate Blood Pressure 134/67 H 149/101 H 153/93 H O2 Saturation 82 L 92 90 L If not protocol : Oxygen Flow, liters/minute 04/18/22 19:06 Temperature Heart Rate 89 Respiratory 14 Rate Blood Pressure 171/85 H O2 Saturation 91 L If not protocol : Oxygen Flow, liters/minute Oxygen O2 Source Room air Oxygen Flow Rate 2 - Labs Labs: Laboratory Tests 04/18/22 04/18/22 04/18/22 16:07 16:07 16:07 WBC 14.2 H RBC 3.91 L Hgb 11.3 L Hct 37.3 MCV 95.4 MCH 28.9 MCHC 30.3 L RDW 17.3 H Plt Count 366 MPV 9.9 Neut # (Auto) 10.2 H Lymph # (Auto) 2.5 [place] # (Auto) 1.0 Eos # (Auto) 0.3 Baso # (Auto) 0.2 H Absolute Nucleated RBC 0.00 Nucleated RBC % 0.0 Sodium 135 Potassium 3.8 Chloride 91 L Carbon Dioxide 26 Anion Gap 18.0 H BUN 17 Creatinine 3.4 H Estimated GFR (MDRD) 13 L Glucose 119 H Lactic Acid 0.8 Calcium 10.0 Total Bilirubin 0.9 AST 22 ALT 15 Alkaline Phosphatase 112 Ammonia Total Protein 8.5 H Albumin 4.4 Globulin 4.1 Albumin/Globulin Ratio 1.1 Urine Color Urine Clarity Urine pH Ur Specific [place] Urine Protein Urine Glucose (UA) Urine Ketones Urine Occult Blood Urine Nitrite Urine Bilirubin Urine Urobilinogen Ur Leukocyte Esterase Urine RBC Urine WBC Ur Squamous Epith Cells Urine Bacteria Urine Culture Comments Ethyl Alcohol < 5.0 04/18/22 04/18/22 16:07 18:40 WBC RBC Hgb Hct MCV MCH MCHC RDW Plt Count MPV Neut # (Auto) Lymph # (Auto) [place] # (Auto) Eos # (Auto) Baso # (Auto) Absolute Nucleated RBC Nucleated RBC % Sodium Potassium Chloride Carbon Dioxide Anion Gap BUN Creatinine Estimated GFR (MDRD) Glucose Lactic Acid Calcium Total Bilirubin AST ALT Alkaline Phosphatase Ammonia 24.7 Total Protein Albumin Globulin Albumin/Globulin Ratio Urine Color YELLOW Urine Clarity CLEAR Urine pH 8.0 H Ur Specific [place] 1.020 Urine Protein >=300 H Urine Glucose (UA) 100 H Urine Ketones TRACE Urine Occult Blood TRACE-INTA Urine Nitrite NEGATIVE Urine Bilirubin NEGATIVE Urine Urobilinogen 0.2 (NORMAL) Ur Leukocyte Esterase NEGATIVE Urine RBC 0-5 Urine WBC 0-3 Ur Squamous Epith Cells NONE SEEN Urine Bacteria Rare Urine Culture Comments NOT INDICATED Ethyl Alcohol - Rads (name of study) CT of the head demonstrates chronic volume loss without acute findings. Radiology: EMP read contemporaneously Single view chest x-ray shows mildly prominent pulmonary interstitium with central line in place Radiology: EMP read contemporaneously PD MEDICAL DECISION MAKING - ED course ED course: This is a 67-year-old woman who presents with an encephalopathy of unclear etiology. The work-up here was relatively unremarkable, modest leukocytosis, no pertinent positive findings on chemistries noting that she is a dialysis patient, clean urine, no alcohol on board, head CT and chest x-ray without pertinent positive findings. On reevaluation at 7:05 PM she was alert and oriented x3, she knew the president, which she did not know on arrival, and she request discharge. She plans to have her [id number] who lives next door to her check on her. Departure - Departure Disposition: 01 Home, Self Care Clinical Impression: End stage renal disease Altered mental status Qualifiers: Altered mental status type: delirium Qualified Code(s): R41.0 - Disorientation, unspecified Condition: Good Record reviewed to determine appropriate education?: Yes Instructions: ED Altered Loc Comments: It is not clear why he became confused tonight, but thankfully it seems to have mostly resolved. Reasonable to have your [id number] check on you at times throughout the evening. Return for any new or worsening symptoms. Dialysis on as usual. We did note some borderline oxygen saturations here, not sure if this is new or related to your emphysema, more likely the latter. Follow-up with your primary care physician, you may need further testing to assess if you need chronic oxygen.
[2022-04-18 16:21] LABS: BASOPHILS # (AUTO) 0.2 10^3/uL (0.0-0.1); BASOPHILS % (AUTO) 1.1 %; EOSINOPHILS # (AUTO) 0.3 10^3/uL (0.0-0.7); EOSINOPHILS % (AUTO) 2.2 %; HCT - HEMATOCRIT 37.3 % (37.0-47.0); HGB - HEMOGLOBIN 11.3 g/dL (12.0-16.0); LYMPHOCYTES # (AUTO) 2.5 10^3/uL (1.5-3.5); LYMPHOCYTES % (AUTO) 17.3 %; MEAN CORPUSCULAR HEMOGLOBIN 28.9 pg (27.0-31.0); MEAN CORPUSCULAR HGB CONC 30.3 g/dL (32.0-36.0); MEAN CORPUSCULAR VOLUME 95.4 fL (81.0-99.0); MEAN PLATELET VOLUME 9.9 fL (7.9-10.8); MONOCYTES % (AUTO) 7.1 %; NEUTROPHILS # (AUTO) 10.2 10^3/uL (1.5-6.6); NEUTROPHILS % (AUTO) 71.9 %; PLT - PLATELET COUNT 366 10^3/uL (130-450); RED BLOOD COUNT 3.91 10^6/uL (4.20-5.40); RED CELL DISTRIBUTION WIDTH 17.3 % (12.0-15.0); WHITE BLOOD COUNT 14.2 x10^3/uL (4.8-10.8)
--- NOTE | 2022-04-18 16:37 | XRAY Report ---
PROCEDURE: Chest 1 View X-Ray INDICATIONS: fever, ams hypoxemia TECHNIQUE: One view of the chest was acquired. COMPARISON: 11/28/2021 FINDINGS: Surgical changes and devices: Right central line terminates in the proximal right atrium. Lungs and pleura: Mildly prominent interstitium. No pleural effusions. Mediastinum: Normal heart size. Bones and chest wall: No suspicious bony lesions. Overlying soft tissues appear unremarkable. IMPRESSION: Mildly prominent pulmonary interstitium could represent edema or vascular crowding secondary to low l lianet volumes. Otherwise no acute thoracic findings on limited portable chest radiograph. Central line terminates in the proximal right atrium. Reviewed by: Jasson Brooks MD on 04/18/2022 4:35 PM PDT Approved by: Jasson Brooks MD on 04/18/2022 4:35 PM PDT Station ID: [id number]
[2022-04-18 16:39] LABS: ALBUMIN 4.4 g/dL (3.2-5.5); ALBUMIN/GLOBULIN RATIO 1.1 (1.0-2.2); ALKALINE PHOSPHATASE 112 IU/L (42-121); ALT ALANINE AMINOTRANSFERASE 15 IU/L (10-60); AST ASPARTATE AMINOTRANSFERASE 22 IU/L (10-42); BILIRUBIN,TOTAL 0.9 mg/dL (0.2-1.0); BUN - BLOOD UREA NITROGEN 17 mg/dL (6-20); CARBON DIOXIDE - CO2 26 mmol/L (21-32); CHLORIDE 91 mmol/L (101-111); CREATININE 3.4 mg/dL (0.4-1.0); ETOH - ETHANOL < 5.0 mg/dL; GFR - MDRD 13 (>89); GLUCOSE 119 mg/dL (70-100); POTASSIUM 3.8 mmol/L (3.5-5.0); SODIUM 135 mmol/L (135-145); TOTAL PROTEIN 8.5 g/dL (6.7-8.2)
--- NOTE | 2022-04-18 16:44 | CT Report ---
PROCEDURE: HEAD WO INDICATIONS: ams TECHNIQUE: Noncontrast 4.5 mm thick angled axial sections acquired from the foramen magnum to the vertex. For r adiation dose reduction, the following was used: automated exposure control, adjustment of mA and/or kV according to patient size. COMPARISON: 11/28/2021 FINDINGS: Image quality: Motion degraded CSF spaces: Basal cisterns are patent. Lateral ventricles are symmetric. Volume: Periventricular white matter hypoattenuation is commonly seen with chronic small vessel disea se. Volume loss is present. These findings are moderate. Brain: No intracranial hemorrhage. Olivas-white differentiation is grossly maintained. Craniofacial structures: No displaced fracture. Sinuses are clear. Orbits are intact. IMPRESSION: Chronic volume loss. No acute intracranial abnormality. Reviewed by: Jasson Brooks MD on 04/18/2022 4:43 PM PDT Approved by: Jasson Brooks MD on 04/18/2022 4:43 PM PDT Station ID: [id number]
[2022-04-18 18:44] LABS: BILIRUBIN,URINE NEGATIVE (NEGATIVE); GLUCOSE, URINE (UA) 100 mg/dL (NEGATIVE); KETONES,URINE (UA) TRACE mg/dL (NEGATIVE); LEUKOCYTE ESTERASE, URINE NEGATIVE (NEGATIVE); NITRITE,URINE NEGATIVE (NEGATIVE); OCCULT BLOOD,URINE TRACE-INTA (NEGATIVE); PROTEIN,URINE >=300 mg/dL (NEGATIVE); UROBILINOGEN,URINE 0.2 (NORMAL) E.U./dL (NORMAL)
[2022-04-18 18:47] LABS: CLARITY,URINE CLEAR (CLEAR)
[2022-04-18 19:08] LABS: BACTERIA,URINE Rare /HPF (None Seen); RBC,URINE 0-5 /HPF (0-5); SQUAMOUS EPITHELIAL CELL,UR NONE SEEN (<= Few); WBC,URINE 0-3 /HPF (0-5)
[2022-04-18 21:13] VITALS: BP 169/88
== END 2022-04-18 21:11 | disposition home or self-care (01) ==
LOC: EDUNIT# → ED 15:48
DX: G93.40 Encephalopathy, unspecified (principal); R41.0 Disorientation, unspecified; D72.829 Elevated white blood cell count, unspecified; E11.22 Type 2 diabetes mellitus with diabetic chronic kidney disease; N18.6 End stage renal disease; Z99.2 Dependence on renal dialysis; J44.9 Chronic obstructive pulmonary disease, unspecified; F17.200 Nicotine dependence, unspecified, uncomplicated
CPT/HCPCS: 36415; 51701; 70450; 71045; 80053; 81001; 82140; 83605; 85025; 87040; 99283; 99284; G0480; 80320; 87086

== ENCOUNTER 2022-04-21 16:48 | Outpatient (CLI) | payer MEDICARE, OTHER, MEDICAID ==
--- NOTE | 2022-04-21 17:15 | XRAY Report ---
PROCEDURE: Chest 2 View X-Ray INDICATIONS: ACUTE COUGH TECHNIQUE: 2 view(s) of the chest. COMPARISON: None. FINDINGS: Surgical changes and devices: Right-sided central venous catheter tip is in SVC. Lungs and pleura: No pleural effusions or pneumothorax. Lungs are clear. Mediastinum: Mediastinal contours are normal. Heart size is normal. Bones and chest wall: No suspicious bony abnormalities. Soft tissues appear unremarkable. IMPRESSION: No acute cardiopulmonary pathology. Reviewed by: Silas Chavez MD on 04/21/2022 5:14 PM PDT Approved by: Silas Chavez MD on 04/21/2022 5:14 PM PDT Station ID: [id number]
== END 2022-04-21 16:49 | disposition home or self-care (01) ==
LOC: DI.S 16:48
PROVIDERS: ATTEND Internal Medicine Nephrology
DX: R05.1 Acute cough (principal); R06.2 Wheezing

== ENCOUNTER 2022-09-19 11:37 | Outpatient (CLI) | payer MEDICARE, MEDICAID | END 2022-09-19 23:59 | disposition short-term general hospital (02) | LOC: EMS 11:37 | DX: S01.01XA Laceration without foreign body of scalp, initial encounter (principal); R42 Dizziness and giddiness; W19.XXXA Unspecified fall, initial encounter; Y92.002 Bathroom of unspecified non-institutional (private) residence as the place of occurrence of the external cause | CPT/HCPCS: A0425; A0429 ==

== ENCOUNTER 2023-03-29 10:14 | Outpatient (CLI) | payer MEDICARE, MEDICAID | END 2023-03-29 23:59 | disposition short-term general hospital (02) | LOC: EMS 10:14 | DX: R41.0 Disorientation, unspecified (principal); R05.9 Cough, unspecified; I47.10 Supraventricular tachycardia, unspecified; E11.22 Type 2 diabetes mellitus with diabetic chronic kidney disease; N18.6 End stage renal disease; Z99.2 Dependence on renal dialysis | CPT/HCPCS: A0425; A0429 ==

== ENCOUNTER 2023-08-17 05:33 | Outpatient (CLI) | payer MEDICARE, MEDICAID | END 2023-08-17 05:34 | disposition short-term general hospital (02) | LOC: EMS 05:33 | DX: R06.02 Shortness of breath (principal); R46.4 Slowness and poor responsiveness; I48.91 Unspecified atrial fibrillation; R45.1 Restlessness and agitation; Z99.2 Dependence on renal dialysis | CPT/HCPCS: A0425; A0427 ==

== ENCOUNTER 2023-09-24 22:38 | Outpatient (CLI) | payer MEDICARE, MEDICAID | END 2023-09-24 22:39 | disposition critical access hospital (66) | LOC: EMS 22:38 | DX: S79.921A Unspecified injury of right thigh, initial encounter (principal); W01.0XXA Fall on same level from slipping, tripping and stumbling without subsequent striking against object, initial encounter; Y93.01 Activity, walking, marching and hiking; Y92.098 Other place in other non-institutional residence as the place of occurrence of the external cause; I10 Essential (primary) hypertension; R00.0 Tachycardia, unspecified | CPT/HCPCS: A0425; A0429 ==

== ENCOUNTER 2023-09-24 23:04 | Emergency (ER) | payer MEDICARE, MEDICAID ==
--- NOTE | 2023-09-24 23:49 | ED Physician Documentation ---
PD HPI LOWER EXT INJURY - Stated complaint Stated Complaint: GLF/R LEG PX - Chief complaint Chief Complaint: Trauma Ext - History obtained from History obtained from: Patient, EMS - History of Present Illness PD HPI LOW EXT INJURY LOCATION: Right, Hip, Upper leg Type of injury: Fall Where injury occurred: Home Timing - onset: Last night Timing - duration: Days (1) Timing - details: Abrupt onset, Still present Improved by: Rest, Immobilization Worsened by: Moving, Palpating Associated symptoms: Swelling. No: Weakness, Numbness, Tingling Contributing factors: No: Anticoagulated Similar symptoms before: Diagnosis (hip fracture) Recently seen: Other (has dialysis in [place] due tomorrow .) - Additional information Additional information: Mireya Martinez is a 68-year-old female with a history of COPD end-stage renal disease on dialysis and hypertension. She was in her home yesterday when she went to bend over to straighten out the leg rest on her wheelchair when she fell forward collapsing onto her left side and she found that her right leg was under her left leg. She had to pull this back out she had extreme pain and she has not been able to bear weight since. She has a lot of swelling to her left thigh. Review of Systems Constitutional: denies: Fever Eyes: denies: Decreased vision Ears: denies: Ear pain Nose: denies: Rhinorrhea / runny nose, Congestion Throat: denies: Sore throat Cardiac: denies: Chest pain / pressure Respiratory: denies: Dyspnea, Cough GI: denies: Abdominal Pain, Nausea, Constipation, Diarrhea : denies: Dysuria Skin: denies: Rash Musculoskeletal: reports: Extremity pain, Extremity swelling, Other (unable to bear weight). denies: Neck pain, Back pain Neurologic: denies: Generalized weakness, Focal weakness, Numbness PD PAST MEDICAL HISTORY - Past Medical History Cardiovascular: Hypertension Respiratory: COPD Neuro: None Endocrine/Autoimmune: Type 2 diabetes INSURANCE SPECIAL AGENT: None : Renal insuffiency, Other HEENT: None Musculoskeletal: None Other Past Medical History: ESRD - Past Surgical History Past Surgical History: Yes Ortho: Spine surgery - Present Medications Home Medications: Ambulatory Orders Medication Instructions Recorded Confirmed Midodrine [ProAmantine] 10 mg PO PRN PRN 09/25/23 09/25/23 Oxycodone HCl 15 mg PO PRN PRN 09/25/23 09/25/23 Sevelamer [Renagel] 1,600 mg PO TID 09/25/23 09/25/23 amLODIPine [Norvasc] 5 mg PO BID 09/25/23 09/25/23 - Allergies Allergies/Adverse Reactions: Allergies Allergy/AdvReac Type Severity Reaction Status Date / Time morphine AdvReac Emesis Verified 04/18/22 15:58 - Social History Does the pt smoke?: Yes Smoking Status: Current every day smoker Does the pt drink ETOH?: Yes Does the pt have substance abuse?: No - Immunizations Immunizations are current?: Yes PD ED PE NORMAL - Vitals Vital signs reviewed: Yes (tachy to 106 hypertensive ) - General General: Alert and oriented X 3, No acute distress, Well developed/nourished - HEENT HEENT: Atraumatic, PERRL, EOMI - Neck Neck: Supple, no meningeal sign, No bony TTP - Cardiac Cardiac: No murmur - Respiratory Respiratory: No respiratory distress - Abdomen Abdomen: Soft, Non tender - Back Back: No CVA TTP, No spinal TTP - Derm Derm: Normal color, Warm and dry, No rash - Extremities Extremities: Other (There is deformity to the right thigh which appears swollen to nearly 3 times the size of the thin left thigh. The right lower extremity is held externally rotated does not appear shortened. Any movement of the foot causes pain in the hip. Distal neurovascular intact.) - Neuro Neuro: Alert and oriented X 3, workers' compensation mediator 2-12 intact, No motor deficit, No sensory deficit, Normal speech Eye Opening: Spontaneous Motor: Obeys Commands Verbal: Oriented GCS Score: 15 - Psych Psych: Normal mood, Normal affect Results - Vitals Vitals: Vital Signs - 24 hr 09/24/23 09/25/23 09/25/23 23:07 00:00 01:00 Temperature 37.4 C Heart Rate 106 H 108 H 97 Respiratory 16 14 16 Rate Blood Pressure 170/76 H 162/83 H 119/101 H O2 Saturation 96 95 96 09/25/23 02:28 Temperature Heart Rate 90 Respiratory 20 Rate Blood Pressure 140/63 H O2 Saturation 99 Oxygen O2 Source Room air - Labs Labs: Laboratory Tests 09/24/23 09/24/23 23:57 23:57 WBC 10.6 RBC 2.94 L Hgb 9.2 L Hct 30.6 L MCV 104.1 H MCH 31.3 H MCHC 30.1 L RDW 17.2 H Plt Count 292 MPV 9.6 Neut # (Auto) 7.8 H Lymph # (Auto) 1.6 [place] # (Auto) 1.0 Eos # (Auto) 0.0 Baso # (Auto) 0.1 Absolute Nucleated RBC 0.00 Nucleated RBC % 0.0 Sodium 137 Potassium 4.7 H Chloride 97 L Carbon Dioxide 26 Anion Gap 14.0 H BUN 37 H Creatinine 7.9 H* Estimated GFR (MDRD) 5 L Glucose 112 H Calcium 9.1 Total Bilirubin 0.5 AST 19 ALT 8 L Alkaline Phosphatase 98 Total Protein 6.8 Albumin 3.8 Globulin 3.0 Albumin/Globulin Ratio 1.3 Lipase < 10 L - Rads (name of study) R hip Relevant Findings:: Prelim report reviewed (Impression: Right proximal femur intertrochanteric fracture. Query left pelvic ring fracture. S/p left hip total arthroplasty without evidence of hardware complication), EMP independent interpretation of test femur Relevant Findings:: Prelim report reviewed (Impression: Displaced and mildly impacted intertrochanteric proximal femur fracture.), EMP independent interpretation of test PD Medical Decision Making - ED course Complexity details: reviewed old records, reviewed results, re-evaluated patient, considered differential, d/w patient Reviewed Lab Results: We reviewed a complete blood count showing a normal white blood cell count a depressed hemoglobin and hematocrit and normal platelets. Her hemoglobin and hematocrit were similar to prior. Chemistries show potassium elevated at 4.7 BUN elevated at 37 and creatinine markedly elevated 7.9. Liver function appeared normal.These laboratory values are all consistent with the patient with end- stage renal disease on dialysis. I found a single value of a hemoglobin and hematocrit that were higher than the rest of the patient's and this occurred under specific conditions. The patient has a large hematoma on her thigh and likely has some alterations in her blood counts. ED course: 68-year-old Jamel Martinez has had a fall in her home and she has broken her right hip. She is has end-stage renal disease on dialysis and is scheduled for dialysis tomorrow. Here in the emergency department she is administered intravenous Dilaudid for pain control. She will require transfer to a trauma center capable of doing dialysis. We contacted the nearest trauma center [place] who was unable to accept the patient due to over capacity. We have contacted [facility] trauma. Departure - Departure Disposition: 02 Transfer Acute Care Hosp Clinical Impression: End stage renal disease Intertrochanteric fracture of right hip Qualifiers: Encounter type: initial encounter Fracture type: closed Fracture alignment: displaced Qualified Code(s): S72.141A - Displaced intertrochanteric fracture of right femur, initial encounter for closed fracture Forms: PCP List Discharge Date/Time: 09/25/23 04:10
[2023-09-25 00:03] LABS: BASOPHILS # (AUTO) 0.1 10^3/uL (0.0-0.1); EOSINOPHILS % (AUTO) 0.2 %; HCT - HEMATOCRIT 30.6 % (37.0-47.0); HGB - HEMOGLOBIN 9.2 g/dL (12.0-16.0); LYMPHOCYTES # (AUTO) 1.6 10^3/uL (1.5-3.5); LYMPHOCYTES % (AUTO) 15.5 %; MEAN CORPUSCULAR HEMOGLOBIN 31.3 pg (27.0-31.0); MEAN CORPUSCULAR HGB CONC 30.1 g/dL (32.0-36.0); MEAN CORPUSCULAR VOLUME 104.1 fL (81.0-99.0); MEAN PLATELET VOLUME 9.6 fL (7.9-10.8); MONOCYTES % (AUTO) 9.4 %; NEUTROPHILS # (AUTO) 7.8 10^3/uL (1.5-6.6); NEUTROPHILS % (AUTO) 73.6 %; PLT - PLATELET COUNT 292 10^3/uL (130-450); RED BLOOD COUNT 2.94 10^6/uL (4.20-5.40); RED CELL DISTRIBUTION WIDTH 17.2 % (12.0-15.0); WHITE BLOOD COUNT 10.6 x10^3/uL (4.8-10.8)
[2023-09-25 00:20] LABS: LIPASE < 10 U/L (11-82)
[2023-09-25 00:35] LABS: ALBUMIN 3.8 g/dL (3.2-5.5); ALBUMIN/GLOBULIN RATIO 1.3 (1.0-2.2); ALKALINE PHOSPHATASE 98 IU/L (42-121); ALT ALANINE AMINOTRANSFERASE 8 IU/L (10-60); AST ASPARTATE AMINOTRANSFERASE 19 IU/L (10-42); BILIRUBIN,TOTAL 0.5 mg/dL (0.2-1.0); BUN - BLOOD UREA NITROGEN 37 mg/dL (6-20); CALCIUM 9.1 mg/dL (8.5-10.3); CARBON DIOXIDE - CO2 26 mmol/L (21-32); CHLORIDE 97 mmol/L (101-111); CREATININE 7.9 mg/dL (0.6-1.3); GFR - MDRD 5 (>89); GLUCOSE 112 mg/dL (74-104); POTASSIUM 4.7 mmol/L (3.5-4.5); SODIUM 137 mmol/L (135-145); TOTAL PROTEIN 6.8 g/dL (6.4-8.9)
--- NOTE | 2023-09-25 00:38 | XRAY Report ---
PROCEDURE: Femur 2+V RT INDICATIONS: suspected fracture TECHNIQUE: 2 views of the femur were acquired. COMPARISON: None. FINDINGS: Bones: Moderately displaced and impacted intertrochanteric proximal femoral fracture. Sclerotic lesi ons seen in the distal femur and proximal tibia. Soft tissues: No suspicious soft tissue calcifications or masses. IMPRESSION: Displaced and mildly impacted intratrochanteric proximal femoral fracture.. Reviewed by: Stacey Gómez MD, PhD on 09/25/2023 12:36 AM PDT Approved by: Stacey Gómez MD, PhD on 09/25/2023 12:36 AM PDT Station ID: [id number]
--- NOTE | 2023-09-25 00:39 | XRAY Report ---
PROCEDURE: Hip w/Pelvis 2-3V RT INDICATIONS: fall suspected fracture. TECHNIQUE: 3 views of the hip were acquired. COMPARISON: Same day right femur radiographs 09/24/2023. FINDINGS: Bones: Displaced and mildly impacted intertrochanteric fracture of the right proximal femur. Status post left hip total arthroplasty with prosthetic elements in appropriate position. Query left pelvic ring fracture. Degenerative changes of the lumbar spine. Soft tissues: No suspicious soft tissue calcifications or masses. IMPRESSION: Right proximal femur intratrochanteric fracture. Query left pelvic ring fracture. Status post left hip total arthroplasty without evidence of hardware completion. Reviewed by: Stacey Gómez MD, PhD on 09/25/2023 12:38 AM PDT Approved by: Stacey Gómez MD, PhD on 09/25/2023 12:38 AM PDT Station ID: [id number]
[2023-09-25] MEDS: ONDANSETRON 4 MG/2 ML VIAL IVP STA (00:59)
[2023-09-25] MEDS: HYDROmorphone 1 MG/ML CARPUJECT IVP STA ×2 (01:04→04:06)
[2023-09-25 02:35] VITALS: BP 140/63; O2SAT 99
[2023-09-25] MEDS ORDERED: HYDROmorphone 1 MG/ML CARPUJECT ONE (04:02)
== END 2023-09-25 04:10 | disposition short-term general hospital (02) ==
LOC: EDUNIT# → ED 23:04
DX: S72.141A Displaced intertrochanteric fracture of right femur, initial encounter for closed fracture (principal); W07.XXXA Fall from chair, initial encounter; I12.0 Hypertensive chronic kidney disease with stage 5 chronic kidney disease or end stage renal disease; E11.22 Type 2 diabetes mellitus with diabetic chronic kidney disease; N18.6 End stage renal disease; Z99.2 Dependence on renal dialysis; J44.9 Chronic obstructive pulmonary disease, unspecified
CPT/HCPCS: 36415; 73502; 73552; 80053; 83690; 85025; 96374; 96375; 96376; 99285; J1170

== ENCOUNTER 2023-11-06 15:21 | Outpatient (CLI) | payer MEDICARE, MEDICAID ==
--- NOTE | 2023-11-07 11:18 | XRAY Report ---
PROCEDURE: Hip w/Pelvis 2-3V RT INDICATIONS: RIGHT FEMUR FRACTURE TECHNIQUE: 3 views of the hip were acquired. COMPARISON: X-ray right femur, 09/24/2023. X-ray right hip, 09/24/2023. MRI pelvis, 02/14/2023. FINDINGS: Bones: ORIF of intertrochanteric femoral fracture. There is a intramedullary guillremina in the femur and 2 screws traverse the femoral neck. Old left superior and inferior pubic ramal fractures are noted. Mo derate spondylitic changes in the lower lumbar spine. There is left hip total arthroplasty with prost hesis in anatomic alignment. Soft tissues: No suspicious soft tissue calcifications or masses. IMPRESSION: ORIF of intertrochanteric right proximal femoral fracture. Reviewed by: Mayo Denny MD on 11/07/2023 11:17 AM PDT Approved by: Mayo Denny MD on 11/07/2023 11:17 AM PDT Station ID: [id number]
== END 2023-11-06 15:22 | disposition home or self-care (01) ==
LOC: DI.S 15:21
PROVIDERS: ATTEND Registered Nurse
DX: S72.141D Displaced intertrochanteric fracture of right femur, subsequent encounter for closed fracture with routine healing (principal)

== ENCOUNTER 2023-11-17 00:55 | Outpatient (CLI) | payer MEDICARE, MEDICAID | END 2023-11-17 23:59 | disposition critical access hospital (66) | LOC: EMS 00:55 | PROVIDERS: ATTEND Emergency Medicine | DX: R41.82 Altered mental status, unspecified (principal); R53.83 Other fatigue; R56.9 Unspecified convulsions; Z99.2 Dependence on renal dialysis | CPT/HCPCS: A0425; A0427 ==

== ENCOUNTER 2024-01-18 08:00 | Outpatient (CLI) | payer MEDICAID, MEDICARE ==
--- NOTE | 2024-01-19 14:16 | XRAY Report ---
PROCEDURE: Wrist 3+V LT INDICATIONS: LEFT WRIST PAIN TECHNIQUE: 3 views of the wrist were acquired. COMPARISON: None. FINDINGS: Bones: No fractures or dislocations. No suspicious bony lesions. IP and radiocarpal degenerative change. Soft tissues: No suspicious soft tissue calcifications or masses. IMPRESSION: No visualized acute fracture or dislocation. However, occult injury cannot be excluded. Recommend brandy rt interval imaging follow-up in 7-10 days as clinically indicated for additional evaluation. Reviewed by: Janiya Madrid MD on 01/19/2024 2:15 PM PDT Approved by: Janiya Madrid MD on 01/19/2024 2:15 PM PDT Station ID: [id number]
== END 2024-01-18 23:59 | disposition home or self-care (01) ==
LOC: DI.S 08:00
PROVIDERS: ATTEND Emergency Medicine
DX: S63.519 Sprain of carpal joint of unspecified wrist (principal)